=== PATIENT | male | born 1940 | race Caucasian/White ===

== ENCOUNTER 2021-01-30 15:45 | Emergency (ER) | payer BC, MEDICARE ==
[~2021-01-30] VITALS: Ht 172.7 cm; Wt 87.7 kg
[~2021-01-30 15:45] MED LIST: ANCEF 2 GM/22 GM/SY1 IV; COLACE 100100 MG/CAP PO; LORTAB 2.5/5001 TAB PO; MIRALAX 17GM PK1 PKT PO; NEXIUM PO; SENOKOT15 MG/DOSE PO; SYNTHROID0.125 MG PO; URECHOLINE10 MG PO
[2021-01-30 15:57] VITALS: TEMP 98.3
[2021-01-30 17:30] VITALS: BP 120/72; PULSE 74
== END 2021-01-30 17:30 | disposition home or self-care (01) ==
LOC: COL.ER 15:45
DX: S63.286A Dislocation of proximal interphalangeal joint of right little finger, initial encounter (principal); K21.9 Gastro-esophageal reflux disease without esophagitis; E03.9 Hypothyroidism, unspecified; Z79.890 Hormone replacement therapy; Z79.899 Other long term (current) drug therapy; W19.XXXA Unspecified fall, initial encounter

== ENCOUNTER 2023-03-23 19:53 | Inpatient (IN) | payer MEDICARE, BC ==
[~2023-03-23] VITALS: Ht 175.3 cm; Wt 90.9 kg
[~2023-03-23 19:53] MED LIST changes: -LORTAB 2.5/5001 TAB PO; +NEXIUM 20MG20 MG PO; -NEXIUM PO; +SYNTHROID0.112 MG/T PO; -SYNTHROID0.125 MG PO; +ULTRAM 50MG TAB50 MG PO
[2023-03-23 21:20] LABS: BASO % 0.3 % (0.0-2.0); EOS # 0.1 K/mm3 (0.0-0.7); GRAN # 10.1 K/mm3 (1.4-6.5); GRAN % 87.4 % (42.2-75.2); HEMOGLOBIN 11.1 g/dl (13.5-18.0); LYMPH # 0.6 K/mm3 (1.2-3.4); MEAN CELL VOLUME 91 fl (80.0-100.0); MEAN CORPUSCULAR HEMOGLOBIN 31 pg (27-31); MEAN CORPUSCULAR HGB CONC 34 g/dl (33.0-37.0); MEAN PLATELET VOLUME 9.1 fl (7.4-10.4); MONO # 0.6 K/mm3 (0.1-0.6); MONO % 5.6 % (1.7-9.3); PLATELET COUNT 212 K/mm3 (130-400); RED BLOOD COUNT 3.59 M/mm3 (4.20-5.60); REDCELL DISTRIBUTION WIDTH-CV 13.2 % (11.5-14.5)
[2023-03-23 21:22] LABS: HEMATOCRIT 32.8 % (42.0-52.0)
[2023-03-23 21:38] LABS: BILIRUBIN,TOTAL 0.4 mg/dL (0.2-1.2); CALCIUM 9.2 mg/dL (8.4-10.2); CREATININE, serum 1.36 mg/dL (0.72-1.25); POTASSIUM 3.8 mmol/L (3.5-4.5); TOTAL PROTEIN 6.4 gm/dL (6.2-8.1)
[2023-03-24] VITALS (9 sets, daily range): BP systolic 112–137; BP diastolic 62–74; PULSE 58–602; TEMP 97.7–98.4
[2023-03-24] MEDS ORDERED: HYGROTON50 MG PO (00:36)
[2023-03-24 01:22] LABS: COLLECTION METHOD CLEAN CATCH
[2023-03-24 01:55] LABS: URINE APPEARANCE Clear (CLEAR/HAZY); URINE BLOOD Negative (NEGATIVE); URINE COLOR Yellow (YELLOW); URINE GLUCOSE TRACE (NEGATIVE); URINE KETONE Negative (NEGATIVE); URINE NITRATE Negative (NEGATIVE); URINE PROTEIN(semi-quant) Negative (NEGATIVE); URINE UROBILINOGEN 0.2 E.U/dL (0.2-1.0)
[2023-03-24 01:57] LABS: SQUAMOUS EPITHELIAL None Seen /hpf (0-10); URINE RBC None Seen /hpf (0-2)
[2023-03-24 01:58] LABS: MUCOUS Present (NOT PRESENT)
[2023-03-24 02:04] LABS: OSMOLALITY-URINE random 559 Osm/kg (50-1200)
[2023-03-24] MEDS ORDERED: ASPIRIN 81M81 MG/TA2 PO (02:04)
[2023-03-24] MEDS ORDERED: FLOMAX 0.40.4 MG/CAP PO (02:05)
[2023-03-24] MEDS ORDERED: COZAAR100 MG PO (02:07)
[2023-03-24 07:22] LABS: HEMATOCRIT 30.9 % (42.0-52.0); HEMOGLOBIN 10.7 g/dl (13.5-18.0); MEAN CELL VOLUME 89 fl (80.0-100.0); MEAN CORPUSCULAR HEMOGLOBIN 31 pg (27-31); MEAN CORPUSCULAR HGB CONC 35 g/dl (33.0-37.0); MEAN PLATELET VOLUME 9.8 fl (7.4-10.4); PLATELET COUNT 186 K/mm3 (130-400); RED BLOOD COUNT 3.49 M/mm3 (4.20-5.60); REDCELL DISTRIBUTION WIDTH-CV 13.1 % (11.5-14.5)
[2023-03-24 07:56] LABS: ALBUMIN 3.5 gm/dL (3.4-4.8); BILIRUBIN,TOTAL 0.4 mg/dL (0.2-1.2); CALCIUM 8.7 mg/dL (8.4-10.2); CREATININE, serum 0.98 mg/dL (0.72-1.25); MAGNESIUM 1.4 mg/dL (1.6-2.6); POTASSIUM 3.6 mmol/L (3.5-4.5); TOTAL PROTEIN 5.8 gm/dL (6.2-8.1)
[2023-03-24 08:24] LABS: THYROID STIMULATING HORMONE 7.826 uIU/mL (0.350-4.940); TROPONIN-I 6 HR POST INITIAL 0.016 ng/mL (0.00-0.033)
[2023-03-25] VITALS (12 sets, daily range): BP systolic 125–148; BP diastolic 56–75; PULSE 58–74; TEMP 97.5–98.5
[2023-03-25 07:46] LABS: BASO # 0.1 K/mm3 (0.0-0.2); BASO % 0.8 % (0.0-2.0); EOS # 0.3 K/mm3 (0.0-0.7); EOS % 4.7 % (0.0-4.0); GRAN # 5.3 K/mm3 (1.4-6.5); GRAN % 72.9 % (42.2-75.2); HEMOGLOBIN 11.5 g/dl (13.5-18.0); LYMPH # 0.8 K/mm3 (1.2-3.4); LYMPH % 11.3 % (20.0-51.0); MEAN CELL VOLUME 87 fl (80.0-100.0); MEAN CORPUSCULAR HEMOGLOBIN 31 pg (27-31); MEAN CORPUSCULAR HGB CONC 35 g/dl (33.0-37.0); MEAN PLATELET VOLUME 9.2 fl (7.4-10.4); MONO # 0.7 K/mm3 (0.1-0.6); MONO % 9.9 % (1.7-9.3); PLATELET COUNT 190 K/mm3 (130-400); RED BLOOD COUNT 3.75 M/mm3 (4.20-5.60); REDCELL DISTRIBUTION WIDTH-CV 13.3 % (11.5-14.5)
[2023-03-25 07:53] LABS: HEMATOCRIT 32.5 % (42.0-52.0)
[2023-03-25 08:03] LABS: CALCIUM 8.7 mg/dL (8.4-10.2); MAGNESIUM 1.9 mg/dL (1.6-2.6); POTASSIUM 3.7 mmol/L (3.5-4.5)
[2023-03-25] MEDS ORDERED: QUALITY CHOIC0.52 GM PO (10:22)
[2023-03-25] MEDS ORDERED: ALDACTONE 100M100 MG PO (10:26)
[2023-03-25 13:50] LABS: CALCIUM 8.6 mg/dL (8.4-10.2); CREATININE, serum 1.04 mg/dL (0.72-1.25); POTASSIUM 3.6 mmol/L (3.5-4.5)
[2023-03-26] VITALS (10 sets, daily range): BP systolic 125–155; BP diastolic 56–78; PULSE 62–75; TEMP 97.2–98.3
[2023-03-26 06:43] LABS: BASO # 0.1 K/mm3 (0.0-0.2); BASO % 0.6 % (0.0-2.0); EOS # 0.4 K/mm3 (0.0-0.7); EOS % 4.5 % (0.0-4.0); GRAN # 6.6 K/mm3 (1.4-6.5); GRAN % 77.5 % (42.2-75.2); HEMOGLOBIN 10.6 g/dl (13.5-18.0); LYMPH # 0.7 K/mm3 (1.2-3.4); LYMPH % 8.3 % (20.0-51.0); MEAN CELL VOLUME 90 fl (80.0-100.0); MEAN CORPUSCULAR HEMOGLOBIN 31 pg (27-31); MEAN CORPUSCULAR HGB CONC 34 g/dl (33.0-37.0); MEAN PLATELET VOLUME 9.3 fl (7.4-10.4); MONO # 0.7 K/mm3 (0.1-0.6); MONO % 8.5 % (1.7-9.3); PLATELET COUNT 167 K/mm3 (130-400); RED BLOOD COUNT 3.47 M/mm3 (4.20-5.60); REDCELL DISTRIBUTION WIDTH-CV 13.4 % (11.5-14.5)
[2023-03-26 06:45] LABS: HEMATOCRIT 31.2 % (42.0-52.0)
[2023-03-26 07:01] LABS: CALCIUM 8.1 mg/dL (8.4-10.2); CREATININE, serum 0.81 mg/dL (0.72-1.25); POTASSIUM 3.3 mmol/L (3.5-4.5)
[2023-03-26] MEDS ORDERED: MIRALAX510G PO ×2 (13:35)
[2023-03-26] MEDS ORDERED: ROXICODONE 55 MG/TAB PO (13:35)
[2023-03-26 17:10] LABS: CALCIUM 8.6 mg/dL (8.4-10.2); CREATININE, serum 0.92 mg/dL (0.72-1.25); POTASSIUM 4.5 mmol/L (3.5-4.5)
[2023-03-27 00:41] VITALS: BP_SYST 144
[2023-03-27 03:23] VITALS: BP 129/75; PULSE 62; TEMP 98.1
[2023-03-27 05:03] VITALS: BP_SYST 129
[2023-03-27 07:16] VITALS: BP 142/61; PULSE 64; TEMP 98.1
[2023-03-27 07:51] LABS: BASO # 0.1 K/mm3 (0.0-0.2); BASO % 0.7 % (0.0-2.0); EOS # 0.6 K/mm3 (0.0-0.7); EOS % 9.4 % (0.0-4.0); GRAN # 4.1 K/mm3 (1.4-6.5); GRAN % 60.7 % (42.2-75.2); HEMOGLOBIN 11.2 g/dl (13.5-18.0); LYMPH # 1.2 K/mm3 (1.2-3.4); LYMPH % 17.3 % (20.0-51.0); MEAN CELL VOLUME 91 fl (80.0-100.0); MEAN CORPUSCULAR HEMOGLOBIN 31 pg (27-31); MEAN CORPUSCULAR HGB CONC 34 g/dl (33.0-37.0); MEAN PLATELET VOLUME 9.8 fl (7.4-10.4); MONO # 0.8 K/mm3 (0.1-0.6); MONO % 11.2 % (1.7-9.3); PLATELET COUNT 175 K/mm3 (130-400); RED BLOOD COUNT 3.64 M/mm3 (4.20-5.60); REDCELL DISTRIBUTION WIDTH-CV 13.7 % (11.5-14.5)
[2023-03-27 07:55] LABS: HEMATOCRIT 33.2 % (42.0-52.0)
[2023-03-27 07:58] LABS: CALCIUM 8.6 mg/dL (8.4-10.2); CREATININE, serum 0.8 mg/dL (0.72-1.25); POTASSIUM 4.1 mmol/L (3.5-4.5)
[2023-03-27] MEDS ORDERED: MIRALAX510G PO (08:54)
[2023-03-27] MEDS ORDERED: LIDODERM 5% PATC1 EA TP (08:54)
== END 2023-03-27 10:10 | DRG 641 ==
LOC: COL.ER 19:53 → MEDICAL 23:31
PROVIDERS: Family Medicine; Physician Assistant; ADMIT Hospitalist
DX: E87.1 Hypo-osmolality and hyponatremia (principal); S22.43XA Multiple fractures of ribs, bilateral, initial encounter for closed fracture; N17.9 Acute kidney failure, unspecified; F32.A Depression, unspecified; K21.9 Gastro-esophageal reflux disease without esophagitis; E03.9 Hypothyroidism, unspecified; Z66 Do not resuscitate; E86.0 Dehydration; I10 Essential (primary) hypertension; W10.8XXA Fall (on) (from) other stairs and steps, initial encounter; N40.0 Benign prostatic hyperplasia without lower urinary tract symptoms; E83.42 Hypomagnesemia; I34.0 Nonrheumatic mitral (valve) insufficiency; K59.00 Constipation, unspecified; T50.995A Adverse effect of other drugs, medicaments and biological substances, initial encounter; E87.8 Other disorders of electrolyte and fluid balance, not elsewhere classified; Z88.1 Allergy status to other antibiotic agents; Z88.8 Allergy status to other drugs, medicaments and biological substances; Z23 Encounter for immunization; Z91.81 History of falling; Y93.89 Activity, other specified; Y92.89 Other specified places as the place of occurrence of the external cause; Z79.890 Hormone replacement therapy; Z79.899 Other long term (current) drug therapy; Z87.891 Personal history of nicotine dependence
CPT/HCPCS: J3475; J7030; Q3014

== ENCOUNTER 2023-12-10 10:08 | Day surgery (SDC) | payer MEDICARE, BC ==
[~2023-12-10] VITALS: Ht 172.7 cm; Wt 86.4 kg
[~2023-12-10 10:08] MED LIST changes: +ALDACTONE 100M100 MG PO; +ASPIRIN 81M81 MG/TA2 PO; +COZAAR100 MG PO; +FLOMAX 0.40.4 MG/CAP PO; +HYGROTON50 MG PO; +LIDODERM 5% PATC1 EA TP; +LR 1,000 ML IV SCH; +MIRALAX510G PO; +QUALITY CHOIC0.52 GM PO; +ROXICODONE 55 MG/TAB PO
[2023-12-10] MEDS ORDERED: fentaNYL 50 MCG/ML 2 ML VIAL ONE ×2 (10:20→10:32)
[2023-12-10] MEDS ORDERED: Rocuronium 50 MG/5 ML Multi-Dose VIAL ONE (10:21)
[2023-12-10] MEDS ORDERED: Lidocaine PF 2% (20 MG/ML) 5 ML VIAL ONE (10:21)
[2023-12-10 11:06] VITALS: BP 107/63; PULSE 66; TEMP 97.4
[2023-12-10] MEDS ORDERED: droPERidol 2.5 MG/ML 2 ML VIAL IV PRN (12:30)
[2023-12-10] MEDS ORDERED: Meperidine 50 MG/ML 1 ML VIAL IV PRN (12:30)
[2023-12-10] MEDS ORDERED: HYDROmorphone 1 MG/1 ML SYRINGE [PACU/SDC ONLY] IV PRN (12:30)
[2023-12-10] MEDS ORDERED: Ondansetron 4 MG/2 ML VIAL IV PRN ×2 (12:30→13:15)
[2023-12-10] MEDS ORDERED: Morphine 2 MG/1 ML VIAL [PACU/SDC ONLY] IV PRN (12:30)
[2023-12-10] MEDS ORDERED: fentaNYL 50 MCG/ML 1 ML SYRINGE/VIAL [PACU/SDC ONLY] IV PRN (12:30)
[2023-12-10] MEDS ORDERED: NORCO 325 MG-51 TAB PO (13:09)
[2023-12-10] MEDS ORDERED: Ibuprofen 600 MG TAB PO PRN (13:15)
[2023-12-10 13:45] VITALS: BP 121/60; PULSE 63; TEMP 97.3
--- NOTE | 2023-12-10 13:45 | NUR ---
PATIENT RETURNS TO ROOM 3 PER CART FROM PACU ACCOMPANIED BY EUGENE MIRELES AND IS AWAKE AND ALERT. IVF INFUSING. TAKING APPLE JUICE AND DENIES ANY PAIN OR NAUSEA. BANDAIDS X3 ON ABDOMEN C/D/I.
[2023-12-10 14:00] VITALS: BP 123/60; PULSE 62
[2023-12-10 14:15] VITALS: BP 129/68; PULSE 67
--- NOTE | 2023-12-10 14:15 | NUR ---
RESTING AND TALKING WITH SPOUSE. DRINKING WATER, JUIICE, AND EATING PUDDING.
--- NOTE | 2023-12-10 14:15 | NUR ---
TOLERATED PUDDING. DENIES NAUSEA.
[2023-12-10 14:30] VITALS: BP 133/61; PULSE 64
--- NOTE | 2023-12-10 14:30 | NUR ---
GIVEN MOTRIN 600MG AFTER EATING PUDDING. DENIES NAUSEA. DRINKING COFFEE.
--- NOTE | 2023-12-10 15:00 | NUR ---
WAS ABLE TO VOID AND GAIT STEADY WALKING. SCROTAL SUPPORT REMAINS IN PLACE. PATIENT RETURNS TO ROOM AND ASSISTED WITH DRESSING. DISCHARGE INSTRUCTIONS WERE GIVEN AND SIGNED. 1515 PATIENT WAS DISCHARGED TO HOME DRIVEN BY SPOUSE PER PRIVATE VEHICLE AND TAKEN TO CAR BY WHEELCHAIR AND INTO VEHICLE BY THIS RN WITH INSTRUCTIONS IN HAND.
== END 2023-12-10 15:15 | disposition home or self-care (01) ==
LOC: SDCO 10:08
DX: K40.20 Bilateral inguinal hernia, without obstruction or gangrene, not specified as recurrent (principal); Z87.891 Personal history of nicotine dependence
CPT/HCPCS: C1781; J2704; J3010; J7120